=== PATIENT | female | born 1990 | race Asian ===

== ENCOUNTER → 2017-05-24 | Outpatient (REF) | payer BC ==
[~2017-05-24] MED LIST: IBUP100SUS PO; MEDR4PAK PO; PERC5TAB PO; PRENTAB52 PO; ROBA500T PO; [UNRECOGNIZED DRUG - CODE] PO
== END ==
LOC: M LAB REF 20:02
PROVIDERS: ATTEND Physician Assistant
DX: R30.0 Dysuria (principal)

== ENCOUNTER → 2017-07-12 | Outpatient (REF) | payer BC | LOC: M LAB REF 13:47 | PROVIDERS: ATTEND Physician Assistant | DX: M54.5 Low back pain (principal) ==

== ENCOUNTER → 2017-07-26 | Outpatient (CLI) | payer BC ==
--- NOTE | 2017-07-26 11:24 | REP ---
MR LUMBAR SPINE WITHOUT CONTRAST: HISTORY: Back pain. There is no disc bulge or herniation at the L1-2 through L3-4 and L5-S1 levels. The nerves exit the neural foramina without compression. There is partial sacralization of the L5 vertebral body. A diffuse disc bugle is present at the L4-5 level. This abuts the thecal sac. The L4 nerves exit the neural foramina without compression. The conus medullaris is normal in appearance terminating at the level of the T12-L1 intervertebral disc. There is fatty infiltration of the filum terminale. A Tarlov cyst is present at the S2 level. Normal signal intensity is present in the lumbar intervertebral discs and vertebral bodies. IMPRESSION: Diffuse disc bulge at the L4-5 level. This abuts the thecal sac. Signed by Trenton Talamantes MD 07/26/2017 11:27 A
== END ==
LOC: M RAD 08:44
PROVIDERS: ATTEND Physician Assistant
DX: M51.36 Other intervertebral disc degeneration, lumbar region (principal); M51.26 Other intervertebral disc displacement, lumbar region

== ENCOUNTER → 2017-08-03 | Outpatient (REF) | payer BC ==
[2017-08-03 16:59] LABS: VITAMIN B12 LEVEL 652 PG/ML
[2017-08-09 00:10] LABS: Lyme Disease IgG Ab 18 kDa Ban Absent (.); Lyme Disease IgG Ab 23 kDa Ban Absent (.); Lyme Disease IgG Ab 28 kDa Ban Absent (.); Lyme Disease IgG Ab 30 kDa Ban Absent (.); Lyme Disease IgG Ab 39 kDa Ban Absent (.); Lyme Disease IgG Ab 41 kDa Ban Present (.); Lyme Disease IgG Ab 45 kDa Ban Absent (.); Lyme Disease IgG Ab 58 kDa Ban Absent (.); Lyme Disease IgG Ab 66 kDa Ban Absent (.); Lyme Disease IgG Ab 93 kDa Ban Absent (.); Lyme Disease IgG West Blot Int Negative (.); Lyme Disease IgG/IgM Antibodie <0.91 ISR (0.00-0.90); Lyme Disease IgM Ab 23 kDa Ban Absent (.); Lyme Disease IgM Ab 39 kDa Ban Absent (.); Lyme Disease IgM Ab 41 kDa Ban Absent (.); Lyme Disease IgM Ab Quantitati 1.67 index (0.00-0.79); Lyme Disease IgM West Blot Int Negative (.)
== END ==
LOC: M LABDRAW1 15:51
PROVIDERS: ATTEND Physician Assistant
DX: M51.36 Other intervertebral disc degeneration, lumbar region (principal)

== ENCOUNTER → 2017-08-21 | Outpatient (REF) | payer BC ==
[2017-08-30 14:04] LABS: SUMMARY SEE SEPARATE REPORT
== END ==
LOC: M LAB REF 17:12
PROVIDERS: ATTEND Psychiatry & Neurology Neurology
DX: M45.9 Ankylosing spondylitis of unspecified sites in spine (principal); M79.1 Myalgia; R20.2 Paresthesia of skin; Z13.1 Encounter for screening for diabetes mellitus

== ENCOUNTER → 2017-08-22 | Outpatient (REF) | payer BC ==
[2017-08-22 14:41] LABS: VITAMIN B12 LEVEL 552 PG/ML
[2017-08-22 14:42] LABS: FOLATE 14.6 NG/ML
[2017-08-25 08:08] LABS: VITAMIN E LEVEL 4.2 mg/L (5.3-16.8)
[2017-08-28 14:14] LABS: SJOGREN'S ANTI SS-A <0.2 AI (0.0-0.9); SJOGREN'S ANTI SS-B <0.2 AI (0.0-0.9)
== END ==
LOC: M LABDRAW1 13:36
PROVIDERS: ATTEND Psychiatry & Neurology Neurology
DX: E55.9 Vitamin D deficiency, unspecified (principal); Z13.29 Encounter for screening for other suspected endocrine disorder; M79.1 Myalgia; R20.0 Anesthesia of skin; M45.9 Ankylosing spondylitis of unspecified sites in spine

== ENCOUNTER → 2018-05-17 | Outpatient (REF) | payer BC | LOC: M LAB REF 15:15 | DX: R19.7 Diarrhea, unspecified (principal) | CPT/HCPCS: 87507 ==

== ENCOUNTER 2021-09-07 09:45 | Emergency (ER) | payer BC ==
[~2021-09-07] VITALS: Ht 167.6 cm; Wt 63.4 kg
[~2021-09-07 09:45] MED LIST changes: +IBUP100S44 PO; -IBUP100SUS PO
[2021-09-07 09:46] VITALS: BP 110/71
[2021-09-07] MEDS ORDERED: ALBUTEROL 90 MCG/ACT 8GM HFA INHALER INH ONE (14:20)
[2021-09-07] MEDS ORDERED: VENTAER INH (14:29)
== END 2021-09-07 15:53 | disposition home or self-care (01) ==
LOC: M ED 09:45
DX: J18.1 Lobar pneumonia, unspecified organism (principal); U07.1 COVID-19

== ENCOUNTER → 2023-05-25 | Outpatient (REF) | payer BC ==
[~2023-05-25] MED LIST changes: +VENTAER INH
== END ==
LOC: M LAB REF 12:13
PROVIDERS: ATTEND Family Medicine
DX: R30.0 Dysuria (principal)

== ENCOUNTER → 2025-06-12 | Outpatient (REF) | payer BC ==
[2025-06-12 18:45] LABS: IRON (FE) 19.0 UG/DL (50-170); PERCENT SATURATION 4.1 % (13.2-45.0)
== END ==
LOC: M LAB REF 17:33
PROVIDERS: ATTEND Family Medicine
DX: D64.9 Anemia, unspecified (principal)